=== PATIENT | male | born 1970 | race Caucasian/White ===

== ENCOUNTER → 2022-12-07 14:18 | Outpatient (BNVA) | payer OTHER, SELFPAY | PROVIDERS: Referring Provider Nurse Practitioner Primary Care; Visit Provider Surgery | DX: Z13.89 Encounter for screening for other disorder (principal) ==

== ENCOUNTER 2023-01-04 13:48 | Outpatient (REF) | payer OTHER, SELFPAY | END 2023-01-04 13:49 | disposition home or self-care (01) | LOC: HO.LNP 13:48 | PROVIDERS: Visit Provider Surgery | DX: L72.0 Epidermal cyst (principal) | CPT/HCPCS: 11441; 88304; 88312 ==

== ENCOUNTER → 2023-01-11 09:33 | Outpatient (BNVA) | payer OTHER, SELFPAY | PROVIDERS: Visit Provider Surgery | DX: Z13.89 Encounter for screening for other disorder (principal) ==